=== PATIENT | male | born 1980 | race Caucasian/White ===

== ENCOUNTER 2023-06-22 12:02 | Outpatient (RCR) | payer OTHER, SELFPAY | END 2023-06-22 23:59 | disposition home or self-care (01) | LOC: RPT 12:02 | PROVIDERS: FAMILY PHYSICIAN Nurse Practitioner Family | DX: C85.90 Non-Hodgkin lymphoma, unspecified, unspecified site (principal); Z73.6 Limitation of activities due to disability; R26.2 Difficulty in walking, not elsewhere classified; M62.81 Muscle weakness (generalized); M54.50 Low back pain, unspecified; M54.6 Pain in thoracic spine | CPT/HCPCS: 97110; 97112; 97163; 97530 ==

== ENCOUNTER 2023-07-23 13:59 | Outpatient (RCR) | payer OTHER, SELFPAY | END 2023-07-23 23:59 | disposition home or self-care (01) | LOC: RPT 13:59 | PROVIDERS: FAMILY PHYSICIAN Nurse Practitioner Family | DX: C85.90 Non-Hodgkin lymphoma, unspecified, unspecified site (principal); Z73.6 Limitation of activities due to disability; R26.2 Difficulty in walking, not elsewhere classified; M62.81 Muscle weakness (generalized); M54.6 Pain in thoracic spine; R53.1 Weakness; M54.50 Low back pain, unspecified | CPT/HCPCS: 97110; 97112; 97530; 97535 ==

== ENCOUNTER 2023-08-06 15:00 | Outpatient (RCR) | payer OTHER, SELFPAY | END 2023-08-07 07:27 | disposition home or self-care (01) | LOC: RPT 15:00 | PROVIDERS: ATTENDING PHYSICIAN Physical Medicine & Rehabilitation Hospice and Palliative Medicine; FAMILY PHYSICIAN Nurse Practitioner Family | DX: C85.90 Non-Hodgkin lymphoma, unspecified, unspecified site (principal); Z73.6 Limitation of activities due to disability; M62.81 Muscle weakness (generalized) | CPT/HCPCS: 97110; 97112; 97530 ==